=== PATIENT | female | born 1940 | race Caucasian/White ===

== ENCOUNTER 2020-03-20 13:03 | Emergency (ER) | payer OTHER ==
[~2020-03-20] VITALS: Ht 165.1 cm; Wt 63.0 kg
[2020-03-20] MEDS ORDERED: SLOW FE142 MG PO (13:15)
[2020-03-20] MEDS ORDERED: HYDROCHLOROTHIA25 M2 PO (13:15)
[2020-03-20] MEDS ORDERED: TAMBOCOR 100 M100 M1 PO (13:15)
[2020-03-20] MEDS ORDERED: RAMIPRIL5 MG PO (13:16)
[2020-03-20] MEDS ORDERED: ELIQUIS5 MG PO (13:16)
[2020-03-20] MEDS ORDERED: LIPITOR 20 MG T20 M1 PO (13:16)
[2020-03-20] MEDS ORDERED: ANORO ELLIPTA1 EACH INH (13:17)
[2020-03-20 14:18] LABS: WBC 5.4 thou/uL (4.0-11.0)
[2020-03-20 14:20] LABS: ABSOLUTE NEUTROPHILS 3.9 thou/uL (1.4-8.2); BASOPHILS 0.4 % (0.0-2.0); EOSINOPHILS 0.6 % (0.0-3.0); HEMATOCRIT 27.8 % (37.0-47.0); HEMOGLOBIN 8.9 gm/dL (12.0-15.0); LYMPHOCYTES 19.3 % (24.0-44.0); MCH 25.8 pg (26.0-34.0); MCHC 32.2 g/dL (28.0-37.0); MCV 80.1 fL (80.0-100.0); MONOCYTES 7.2 % (1.0-8.0); PLATELET COUNT 251 thou/uL (150-400); POLYS 72.5 % (36.0-66.0); RBC 3.47 mil/uL (4.20-5.00); RDW 16.1 % (10.5-14.5)
[2020-03-20 14:28] LABS: ANION GAP 9 mmol/L (7-16); BUN 20 mg/dL (7-18); CALCIUM 8.8 mg/dL (8.5-10.1); CHLORIDE 102 mmol/L (98-107); CO2 27 mmol/L (21-32); CREATININE 1.4 mg/dL (0.6-1.0); GLUCOSE 111 mg/dL (74-106); POTASSIUM 4.4 mmol/L (3.5-5.1); SODIUM 138 mmol/L (136-145)
[2020-03-20 14:37] LABS: DIRECT BILIRUBIN 0.1 mg/dL (<0.1-0.2); SGOT 16 U/L (15-37); SGPT 17 U/L (30-65); TOTAL BILIRUBIN 0.6 mg/dL (0.2-1.0); TOTAL PROTEIN 7.7 g/dL (6.4-8.2); TROPONIN-I <0.06 ng/mL (<0.06)
[2020-03-20 16:04] VITALS: BP 105/71
--- NOTE | 2020-03-21 08:43 | EKG ---
[facility] [place] [address] ELECTROCARDIOGRAM REPORT Name: TOMY RAMSEY Room #: [facility]#: [id number] Admission: 03/20/20 Attend Phys: Discharge: 03/20/20 Date of : 36 Report #: [id number] THIS REPORT FOR: cc: Venkatesh Banegas MD, David P. MD Lundgren,Sam Silverman MD [facility] THIS REPORT FOR: //name// [facility] ED Test Date: 2020-03-20 Test Time: 13:22:14 Pat Name: TOMY RAMSEY Department: Room: Gender: F Carpenter Maintenance: Eusebio : 1940 Requested By: Gardenia Mao Order Number: [id number] MD: Sam Snider Measurements Intervals [place] Rate: 68 P: 217 MT: 317 QRS: 17 QRSD: 136 T: -1 QT: 447 QTc: 476 Interpretive Statements Sinus or ectopic atrial rhythm Prolonged MT interval Nonspecific intraventricular conduction delay No previous ECG available for comparison Electronically Signed On 03-21-2020 8:43:03 CDT by Sam Snider [email or web address] <ELECTRONICALLY SIGNED> By: Sam Snider MD, [facility] 03/21/20 [id number] 1322 Sam Snider MD, [facility] /EPI
== END 2020-03-20 16:41 | disposition home or self-care (01) ==
LOC: ER 13:03
PROVIDERS: Emergency Medicine
DX: R06.09 Other forms of dyspnea (principal); I10 Essential (primary) hypertension; E78.5 Hyperlipidemia, unspecified; I48.91 Unspecified atrial fibrillation; Z79.899 Other long term (current) drug therapy

== ENCOUNTER → 2020-03-30 | Outpatient (CLI) | payer OTHER ==
[~2020-03-30] MED LIST: ANORO ELLIPTA1 EACH INH; ELIQUIS5 MG PO; HYDROCHLOROTHIA25 M2 PO; LIPITOR 20 MG T20 M1 PO; RAMIPRIL5 MG PO; SLOW FE142 MG PO; TAMBOCOR 100 M100 M1 PO
== END ==
LOC: SJCVCIMAG 07:26
PROVIDERS: ATTEND Internal Medicine Cardiovascular Disease
DX: I08.3 Combined rheumatic disorders of mitral, aortic and tricuspid valves (principal); I27.20 Pulmonary hypertension, unspecified; I44.0 Atrioventricular block, first degree; I48.0 Paroxysmal atrial fibrillation; I11.9 Hypertensive heart disease without heart failure; J44.9 Chronic obstructive pulmonary disease, unspecified; E78.5 Hyperlipidemia, unspecified; Z79.899 Other long term (current) drug therapy

== ENCOUNTER → 2020-06-14 | Outpatient (CLI) | payer OTHER ==
--- NOTE | ~2020-06-14 | P ---
[facility] [place] [address] PROCEDURE REPORT Name: TOMY RAMSEY Room #: [facility]#: [id number] Admission: 06/14/20 Attend Phys: Heron Lane MD Discharge: Date of : 36 Report #: [id number] THIS REPORT FOR: cc: Venkatesh Banegas MD,Venkatesh Lane,Heron Sheikh MD ~ CC: Venkatesh Lane EXPLANATION OF IMPLANTABLE LOOP RECORDER PREOPERATIVE DIAGNOSIS: Atrial fibrillation. POSTOPERATIVE DIAGNOSIS: Atrial fibrillation. DESCRIPTION OF PROCEDURE: The patient underwent informed consent. She was prepped in a standard fashion. I injected lidocaine at the incision site. Incision was made. The device was extracted and the skin was sutured with 3-0 Vicryl. A dressing was placed. There were no procedure related complications. CONCLUSIONS: Successful explantation of an implantable loop recorder. By: [id number] MD /nt
[2020-06-14 08:49] VITALS: BP 150/63
== END | disposition home or self-care (01) ==
LOC: CATH 07:23
PROVIDERS: ATTEND Internal Medicine Cardiovascular Disease
DX: I48.91 Unspecified atrial fibrillation (principal); Z79.899 Other long term (current) drug therapy; Z79.01 Long term (current) use of anticoagulants

== ENCOUNTER → 2020-08-03 | Outpatient (CLI) | payer OTHER | LOC: CAT 13:07 | PROVIDERS: ATTEND Pediatrics | DX: J98.11 Atelectasis (principal); I51.7 Cardiomegaly; I65.22 Occlusion and stenosis of left carotid artery; I77.810 Thoracic aortic ectasia; J44.9 Chronic obstructive pulmonary disease, unspecified; M47.814 Spondylosis without myelopathy or radiculopathy, thoracic region ==

== ENCOUNTER → 2020-09-15 | Outpatient (CLI) | payer OTHER | LOC: SJCVC 12:52 | PROVIDERS: ATTEND Internal Medicine Cardiovascular Disease | DX: I48.0 Paroxysmal atrial fibrillation (principal); I44.0 Atrioventricular block, first degree; I10 Essential (primary) hypertension; J44.9 Chronic obstructive pulmonary disease, unspecified; Z90.49 Acquired absence of other specified parts of digestive tract; Z98.890 Other specified postprocedural states; Z79.899 Other long term (current) drug therapy; Z82.49 Family history of ischemic heart disease and other diseases of the circulatory system ==

== ENCOUNTER → 2021-04-13 | Outpatient (CLI) | payer OTHER | LOC: SJCVC 13:03 | PROVIDERS: ATTEND Internal Medicine Cardiovascular Disease | DX: R94.31 Abnormal electrocardiogram [ECG] [EKG] (principal); I44.0 Atrioventricular block, first degree; I49.9 Cardiac arrhythmia, unspecified; I48.91 Unspecified atrial fibrillation; I25.10 Atherosclerotic heart disease of native coronary artery without angina pectoris; E78.00 Pure hypercholesterolemia, unspecified; I10 Essential (primary) hypertension; E78.5 Hyperlipidemia, unspecified; D50.9 Iron deficiency anemia, unspecified; Z79.899 Other long term (current) drug therapy ==

== ENCOUNTER → 2021-05-12 | Outpatient (CLI) | payer OTHER | LOC: SJCVC 12:49 | PROVIDERS: ATTEND Internal Medicine Cardiovascular Disease | DX: I44.0 Atrioventricular block, first degree (principal); I25.10 Atherosclerotic heart disease of native coronary artery without angina pectoris; I48.91 Unspecified atrial fibrillation; I10 Essential (primary) hypertension; E78.00 Pure hypercholesterolemia, unspecified; I38 Endocarditis, valve unspecified; Z79.899 Other long term (current) drug therapy ==

== ENCOUNTER → 2021-10-04 | Outpatient (CLI) | payer OTHER | LOC: SJCVC 14:51 | PROVIDERS: ATTEND Internal Medicine Cardiovascular Disease | DX: I44.0 Atrioventricular block, first degree (principal); R00.1 Bradycardia, unspecified; I48.91 Unspecified atrial fibrillation; I25.10 Atherosclerotic heart disease of native coronary artery without angina pectoris; I47.1 Supraventricular tachycardia; J44.9 Chronic obstructive pulmonary disease, unspecified; Z98.890 Other specified postprocedural states; Z79.899 Other long term (current) drug therapy; I10 Essential (primary) hypertension; E78.5 Hyperlipidemia, unspecified ==